=== PATIENT | male | born 1990 | race African-American/Black ===

== ENCOUNTER 2017-04-10 13:18 | Emergency (ER) | payer OTHER ==
[~2017-04-10 13:18] MED LIST: ANAPROX DS550 MG PO; MEDROL DOSEPAK4 MG PO; MOTRIN800 MG PO; NAPROSYN500 MG PO; NKHM; NORCO 325 MG-51 TAB PO; PARAFON FORTE500 MG PO; ULTRAM50 MG PO; VICODIN 5/500 505 MG PO; ZOFRAN4 MG PO
[2017-04-10] MEDS ORDERED: CYCLOBENZAPRINE10 MG PO (14:27)
== END 2017-04-10 14:29 | disposition home or self-care (01) ==
LOC: ED 13:18
DX: S33.5XXA Sprain of ligaments of lumbar spine, initial encounter (principal); F17.200 Nicotine dependence, unspecified, uncomplicated; W11.XXXA Fall on and from ladder, initial encounter; Y93.89 Activity, other specified; Y92.9 Unspecified place or not applicable; Y99.9 Unspecified external cause status

== ENCOUNTER 2018-07-12 15:12 | Emergency (ER) | payer OTHER ==
[~2018-07-12] VITALS: Ht 165.1 cm; Wt 80.7 kg
[2018-07-12] MEDS ORDERED: NAPROSYN500 MG PO (17:02)
== END 2018-07-12 16:46 | disposition home or self-care (01) ==
LOC: ED 15:12
DX: S60.221A Contusion of right hand, initial encounter (principal); W23.0XXA Caught, crushed, jammed, or pinched between moving objects, initial encounter; Y93.89 Activity, other specified; Y92.89 Other specified places as the place of occurrence of the external cause; Y99.8 Other external cause status

== ENCOUNTER → 2018-07-12 | Outpatient (CLI) | payer OTHER ==
[~2018-07-12] MED LIST changes: +CYCLOBENZAPRINE10 MG PO
== END | disposition home or self-care (01) ==
LOC: RAD 14:26
DX: M79.641 Pain in right hand (principal); R20.0 Anesthesia of skin; M79.89 Other specified soft tissue disorders

== ENCOUNTER 2018-08-25 15:19 | Emergency (ER) | payer OTHER ==
[~2018-08-25] VITALS: Wt 83.9 kg
--- NOTE | ~2018-08-25 | EKG ---
[place], [place] ELECTROCARDIOGRAM REPORT NAME: JOHN WHITE UNIT #: [id number] ROOM: DOCTOR: EPIPHANY DRAFT REPORT BIRTHDATE: [birth year] [facility] Test Date: 2018-08-25 Test Time: 15:56:10 Pat Name: JOHN WHITE Department: Room: Gender: M [employer] Operator: ELISHA : 1990 Requested By: EL OWUSU Order Number: [id number] Reading MD: Miguel Mathis MD Measurements Intervals [place] Rate: 55 P: 13 MN: 184 QRS: 63 QRSD: 104 T: 24 QT: 436 QTc: 417 Interpretive Statements Sinus rhythm Baseline wander in lead(s) V5,V6 Electronically Signed On 08-26-2018 15:28:22 PST by Miguel Mathis MD CM:EKGRPT:ELECTROCARDIOGRAM REPORT [id number] EL LESLIE DRAFT REPORT EL OWUSU MD
[2018-08-25 15:44] LABS: BASO % 0.5 % (0.0-1.0); EOS # 0.3 10*3/uL (0.0-0.4); EOS % 3.2 % (1.0-4.0); HEMATOCRIT 41.6 % (42.0-52.0); HEMOGLOBIN 14.4 g/dl (14.0-18.0); LYMPH # 1.6 10*3/uL (1.3-4.4); LYMPH % 20.6 % (27.0-41.0); MEAN CELL VOLUME 92.4 fl (80.0-94.0); MEAN CORPUSCULAR HGB CONC 34.6 g/dl (33.0-37.0); MEAN PLATELET VOLUME 8.7 fl (9.6-12.3); MONO # 0.7 10*3/uL (0.1-1.0); MONO % 9.1 % (3.0-9.0); NEUT # 5.2 10*3/uL (2.3-7.9); NEUT % 66.3 % (47.0-73.0); PLATELET COUNT AUTOMATED 232 10*3/uL (130-400); RED CELL DISTRI WIDTH 12.1 % (0-14.5); WHITE BLOOD COUNT 7.8 10*3/uL (4.8-10.8)
[2018-08-25 15:53] LABS: ACT PARTIAL THROMBO TIME 26.1 SECONDS (20.8-31.5); INTERNATIONAL NORM RATIO 0.9 (2.0-3.5)
[2018-08-25 16:01] LABS: ALBUMIN 3.6 gm/dl (3.1-4.5); ALKALINE PHOSPHATASE 67 U/L (45-117); BUN 9 mg/dl (7-24); CHLORIDE 104 mmol/L (98-107); CREATININE 1.02 mg/dL (0.70-1.30); POTASSIUM 3.5 mmol/L (3.5-5.1); SGOT/AST 31 IU/L (3-35); SGPT/ALT 36 U/L (12-78); SODIUM 138 mmol/L (136-145)
[2018-08-25 16:18] LABS: TROPONIN I < 0.015 ng/ml (<0.045)
== END 2018-08-25 17:15 | disposition home or self-care (01) ==
LOC: ED 15:19
PROVIDERS: Emergency Medicine
DX: J06.9 Acute upper respiratory infection, unspecified (principal); R07.89 Other chest pain; M54.5 Low back pain; M54.6 Pain in thoracic spine; F17.210 Nicotine dependence, cigarettes, uncomplicated

== ENCOUNTER 2020-01-04 14:51 | Emergency (ER) | payer OTHER ==
[~2020-01-04] VITALS: Ht 157.4 cm; Wt 77.6 kg
[2020-01-04 16:57] LABS: BILIRUBIN NEGATIVE (NEGATIVE); BLOOD NEGATIVE (NEGATIVE); CLARITY CLEAR (CLEAR); COLOR YELLOW (YELLOW); GLUCOSE NEGATIVE (NEGATIVE); KETONE 2+ (NEGATIVE); LEUKO ESTERASE NEGATIVE (NEGATIVE); MUCOUS 1+; NITRITE NEGATIVE (NEGATIVE); PH 8.5 (5.0-9.0)
[2020-01-04 17:19] LABS: BASO % 0.1 % (0.0-1.0); HEMATOCRIT 43.9 % (42.0-52.0); HEMOGLOBIN 15.2 g/dl (14.0-18.0); LYMPH # 0.4 10*3/uL (1.3-4.4); LYMPH % 3.9 % (27.0-41.0); MEAN CELL VOLUME 93.4 fl (80.0-94.0); MEAN CORPUSCULAR HGB 32.3 pg (27.0-31.0); MEAN CORPUSCULAR HGB CONC 34.6 g/dl (33.0-37.0); MEAN PLATELET VOLUME 9.1 fl (9.6-12.3); MONO % 9.4 % (3.0-9.0); NEUT % 86.2 % (47.0-73.0); PLATELET COUNT AUTOMATED 194 10*3/uL (130-400); RED CELL DISTRI WIDTH 12.3 % (0-14.5); WHITE BLOOD COUNT 10.4 10*3/uL (4.8-10.8)
[2020-01-04 17:32] LABS: ALBUMIN 4.1 gm/dl (3.1-4.5); ALKALINE PHOSPHATASE 52 U/L (45-117); BUN 13 mg/dl (7-24); CHLORIDE 101 mmol/L (98-107); CREATININE 1.21 mg/dL (0.70-1.30); LIPASE 61 U/L (73-393); POTASSIUM 3.2 mmol/L (3.5-5.1); SGOT/AST 20 IU/L (3-35); SGPT/ALT 35 U/L (12-78); SODIUM 135 mmol/L (136-145); TOTAL PROTEIN 7.9 gm/dL (6.4-8.2)
[2020-01-04] MEDS ORDERED: TAMIFLU 75MG CA75 MG PO (20:31)
[2020-01-04] MEDS ORDERED: IBUPROFEN600 MG PO (20:31)
== END 2020-01-04 20:30 | disposition left against medical advice (07) ==
LOC: ED 14:51
PROVIDERS: Physician Assistant
DX: J10.1 Influenza due to other identified influenza virus with other respiratory manifestations (principal); R11.10 Vomiting, unspecified; R10.31 Right lower quadrant pain; J45.909 Unspecified asthma, uncomplicated; M19.90 Unspecified osteoarthritis, unspecified site; F17.200 Nicotine dependence, unspecified, uncomplicated

== ENCOUNTER 2020-06-11 10:39 | Emergency (ER) | payer OTHER ==
[~2020-06-11] VITALS: Wt 79.4 kg
[~2020-06-11 10:39] MED LIST changes: +IBUPROFEN600 MG PO; +TAMIFLU 75MG CA75 MG PO
[2020-06-11] MEDS ORDERED: PERCOCET 5-3251 EACH PO (12:24)
[2020-06-11] MEDS ORDERED: IBU800 MG PO (12:24)
[2020-06-11] MEDS ORDERED: DOXYCYCLINE100 M3 PO (12:24)
== END 2020-06-11 12:44 | disposition home or self-care (01) ==
LOC: ED 10:39
DX: L05.01 Pilonidal cyst with abscess (principal)

== ENCOUNTER 2020-06-16 18:35 | Emergency (ER) | payer OTHER ==
[~2020-06-16] VITALS: Ht 165.1 cm; Wt 79.4 kg
[~2020-06-16 18:35] MED LIST changes: +DOXYCYCLINE100 M3 PO; +IBU800 MG PO; +PERCOCET 5-3251 EACH PO
[2020-06-16 21:02] LABS: BASO % 0.3 % (0.0-1.0); EOS # 0.2 10*3/uL (0.0-0.4); EOS % 1.9 % (1.0-4.0); HEMATOCRIT 44.1 % (42.0-52.0); LYMPH # 1.9 10*3/uL (1.3-4.4); LYMPH % 19.3 % (27.0-41.0); MEAN CELL VOLUME 93.2 fl (80.0-94.0); MEAN CORPUSCULAR HGB 31.5 pg (27.0-31.0); MEAN CORPUSCULAR HGB CONC 33.8 g/dl (33.0-37.0); MEAN PLATELET VOLUME 8.9 fl (9.6-12.3); MONO # 0.7 10*3/uL (0.1-1.0); MONO % 6.6 % (3.0-9.0); NEUT % 71.5 % (47.0-73.0); PLATELET COUNT AUTOMATED 253 10*3/uL (130-400); RED BLOOD COUNT 4.73 10*6/uL (4.50-5.90); RED CELL DISTRI WIDTH 11.7 % (0-14.5); WHITE BLOOD COUNT 9.8 10*3/uL (4.8-10.8)
[2020-06-16 21:17] LABS: ALBUMIN 3.8 gm/dl (3.1-4.5); ALKALINE PHOSPHATASE 54 U/L (45-117); BUN 7 mg/dl (7-24); CHLORIDE 106 mmol/L (98-107); CREATININE 0.98 mg/dL (0.70-1.30); LIPASE 59 U/L (73-393); POTASSIUM 3.7 mmol/L (3.5-5.1); SGOT/AST 11 IU/L (3-35); SGPT/ALT 28 U/L (12-78); SODIUM 141 mmol/L (136-145); TOTAL PROTEIN 7.5 gm/dL (6.4-8.2)
== END 2020-06-17 00:02 | disposition home or self-care (01) ==
LOC: ED 18:35
PROVIDERS: Physician Assistant
DX: K29.60 Other gastritis without bleeding (principal); Z79.1 Long term (current) use of non-steroidal anti-inflammatories (NSAID); Z79.899 Other long term (current) drug therapy

== ENCOUNTER → 2020-10-12 | Outpatient (CLI) | payer OTHER | END | disposition home or self-care (01) | LOC: RAD 11:37 | PROVIDERS: ATTEND Family Medicine | DX: S99.912A Unspecified injury of left ankle, initial encounter (principal); X58.XXXA Exposure to other specified factors, initial encounter; Y93.89 Activity, other specified; Y92.89 Other specified places as the place of occurrence of the external cause; Y99.8 Other external cause status ==

== ENCOUNTER 2020-12-12 09:21 | Emergency (ER) | payer OTHER ==
[~2020-12-12] VITALS: Ht 160 cm; Wt 70.8 kg
[2020-12-12] MEDS ORDERED: NAPROXEN250 MG PO (10:14)
[2020-12-12] MEDS ORDERED: TYLENOL325 M1 PO (10:14)
== END 2020-12-12 10:34 | disposition home or self-care (01) ==
LOC: ED 09:21
DX: S93.402A Sprain of unspecified ligament of left ankle, initial encounter (principal); S93.602A Unspecified sprain of left foot, initial encounter; J45.909 Unspecified asthma, uncomplicated; M19.90 Unspecified osteoarthritis, unspecified site; Z88.8 Allergy status to other drugs, medicaments and biological substances; Z79.899 Other long term (current) drug therapy; W22.8XXA Striking against or struck by other objects, initial encounter; Y93.89 Activity, other specified; Y92.89 Other specified places as the place of occurrence of the external cause; Y99.8 Other external cause status

== ENCOUNTER 2021-04-05 21:00 | Emergency (ER) | payer OTHER ==
[~2021-04-05] VITALS: Ht 157.4 cm; Wt 80.7 kg
[~2021-04-05 21:00] MED LIST changes: +NAPROXEN250 MG PO; +TYLENOL325 M1 PO
[2021-04-05 21:53] LABS: BASO % 0.4 % (0.0-1.0); EOS # 0.4 10*3/uL (0.0-0.4); EOS % 3.4 % (1.0-4.0); HEMATOCRIT 44.2 % (42.0-52.0); MEAN CELL VOLUME 94.6 fl (80.0-94.0); MEAN CORPUSCULAR HGB 31.7 pg (27.0-31.0); MEAN CORPUSCULAR HGB CONC 33.5 g/dl (33.0-37.0); MEAN PLATELET VOLUME 9.4 fl (9.6-12.3); MONO # 0.7 10*3/uL (0.1-1.0); MONO % 6.5 % (3.0-9.0); NEUT # 7.1 10*3/uL (2.3-7.9); NEUT % 69.4 % (47.0-73.0); PLATELET COUNT AUTOMATED 196 10*3/uL (130-400); RED BLOOD COUNT 4.67 10*6/uL (4.50-5.90); RED CELL DISTRI WIDTH 12.7 % (0-14.5); WHITE BLOOD COUNT 10.2 10*3/uL (4.8-10.8)
[2021-04-05 22:12] LABS: ALBUMIN 3.8 gm/dl (3.1-4.5); ALKALINE PHOSPHATASE 54 U/L (45-117); BUN 11 mg/dl (7-24); CHLORIDE 105 mmol/L (98-107); POTASSIUM 3.4 mmol/L (3.5-5.1); SGOT/AST 73 IU/L (3-35); SGPT/ALT 220 U/L (12-78); SODIUM 138 mmol/L (136-145); TOTAL PROTEIN 7.4 gm/dL (6.4-8.2)
== END 2021-04-06 01:05 | disposition home or self-care (01) ==
LOC: ED 21:00
PROVIDERS: Internal Medicine
DX: S07.9XXA Crushing injury of head, part unspecified, initial encounter (principal); R07.89 Other chest pain; R10.9 Unspecified abdominal pain; Z88.8 Allergy status to other drugs, medicaments and biological substances; Z79.2 Long term (current) use of antibiotics; Z79.899 Other long term (current) drug therapy; W20.8XXA Other cause of strike by thrown, projected or falling object, initial encounter; Y93.89 Activity, other specified; Y92.89 Other specified places as the place of occurrence of the external cause; Y99.8 Other external cause status

== ENCOUNTER 2021-04-09 17:14 | Emergency (ER) | payer OTHER | END 2021-04-09 19:23 | disposition short-term general hospital (02) | LOC: ED 17:14 | DX: H35.63 Retinal hemorrhage, bilateral (principal); Z88.8 Allergy status to other drugs, medicaments and biological substances; Z79.899 Other long term (current) drug therapy ==

== ENCOUNTER 2021-11-13 12:15 | Emergency (ER) | payer OTHER | END 2021-11-13 12:20 | disposition left against medical advice (07) | LOC: ED 12:15 | DX: R11.2 Nausea with vomiting, unspecified (principal); Z53.21 Procedure and treatment not carried out due to patient leaving prior to being seen by health care provider ==

== ENCOUNTER 2022-02-11 23:15 | Emergency (ER) | payer OTHER ==
[~2022-02-11] VITALS: Ht 172.7 cm; Wt 89.4 kg
== END 2022-02-11 23:48 | disposition home or self-care (01) ==
LOC: ED 23:15
DX: S05.01XA Injury of conjunctiva and corneal abrasion without foreign body, right eye, initial encounter (principal); Z88.8 Allergy status to other drugs, medicaments and biological substances; W22.8XXA Striking against or struck by other objects, initial encounter; Y93.89 Activity, other specified; Y92.89 Other specified places as the place of occurrence of the external cause; Y99.8 Other external cause status

== ENCOUNTER 2023-08-23 01:14 | Emergency (ER) | payer OTHER ==
[~2023-08-23] VITALS: Ht 165.1 cm; Wt 70.3 kg
[2023-08-23] MEDS ORDERED: AMOX-CLAV 875-1 EACH PO (01:30)
[2023-08-23] MEDS ORDERED: PREDNISONE50 MG PO (01:30)
== END 2023-08-23 01:52 | disposition home or self-care (01) ==
LOC: ED 01:14
DX: K08.89 Other specified disorders of teeth and supporting structures (principal); M19.90 Unspecified osteoarthritis, unspecified site; J45.909 Unspecified asthma, uncomplicated; Z88.8 Allergy status to other drugs, medicaments and biological substances

== ENCOUNTER 2023-11-23 07:32 | Emergency (ER) | payer OTHER ==
[~2023-11-23] VITALS: Ht 162.5 cm; Wt 84.8 kg
[~2023-11-23 07:32] MED LIST changes: +AMOX-CLAV 875-1 EACH PO; +PREDNISONE50 MG PO
[2023-11-23] MEDS ORDERED: CYCLOBENZAPRINE10 MG PO (09:06)
== END 2023-11-23 09:09 | disposition home or self-care (01) ==
LOC: ED 07:32
DX: M54.50 Low back pain, unspecified (principal); M62.830 Muscle spasm of back; M19.90 Unspecified osteoarthritis, unspecified site; J45.909 Unspecified asthma, uncomplicated; Z88.8 Allergy status to other drugs, medicaments and biological substances